=== PATIENT | male | born 1980 | race Caucasian/White ===

== ENCOUNTER 2019-10-05 09:37 | Emergency (ER) | payer BC ==
[~2019-10-05] VITALS: Ht 172.7 cm; Wt 95.7 kg
[2019-10-05 09:45] VITALS: Ht 172.7 cm; Wt 95.7 kg
[2019-10-05 10:18] VITALS: BP 127/85
== END 2019-10-05 10:18 | disposition home or self-care (01) ==
LOC: ED 09:37
DX: S46.911A Strain of unspecified muscle, fascia and tendon at shoulder and upper arm level, right arm, initial encounter (principal); I10 Essential (primary) hypertension; E78.00 Pure hypercholesterolemia, unspecified; X58.XXXA Exposure to other specified factors, initial encounter; Y93.89 Activity, other specified; Y92.89 Other specified places as the place of occurrence of the external cause; Y99.8 Other external cause status
CPT/HCPCS: J1885